=== PATIENT | female | born 1975 | race Caucasian/White ===

== ENCOUNTER → 2018-03-18 | Outpatient (CLI) | payer BC ==
--- NOTE | 2018-03-18 12:28 | XR ---
EXAMINATION TYPE: XR shoulder limited LT DATE OF EXAM: 03/18/2018 CLINICAL HISTORY: pain COMPARISON: NONE TECHNIQUE: Two views of the left shoulder are obtained. FINDINGS: There is no acute fracture/dislocation evident. The acromioclavicular and glenohumeral valente int spaces appear within normal limits. The visualized ribs are intact and unremarkable. IMPRESSION: 1. There is no acute fracture or dislocation. ICD 10 NO FRACTURE, INITIAL EVALUATION
== END | disposition home or self-care (01) ==
LOC: RADXRMAIN 12:03
PROVIDERS: ATTEND Family Medicine
DX: M25.512 Pain in left shoulder (principal)

== ENCOUNTER → 2018-03-25 | Outpatient (CLI) | payer BC ==
--- NOTE | 2018-03-25 12:14 | CT ---
EXAMINATION TYPE: CT brain wo con DATE OF EXAM: 03/25/2018 COMPARISON: None HISTORY: Seiziure disorder CT DLP: 1028.[address] of the brain was performed. The ventricles, basal cisterns and sulci overlying the cerebral convexities demonstrate a normal appe arance. There is no evidence for intracranial hemorrhage or sulcal effacement. No mass effects are seen. Osseous calvarium is intact. If symptoms persist consider MRI as clinically warranted. IMPRESSION: 1. No acute intracranial process is seen at this time.
--- NOTE | 2018-03-25 12:16 | CT ---
EXAMINATION TYPE: CT facial bones wo con DATE OF EXAM: 03/25/2018 COMPARISON: None HISTORY: Contusion of face initial encounter CT DLP: 548.[address] of the facial bones was performed in the axial and coronal planes. Bone and soft tissu e window settings are submitted. None No significant soft tissue swelling is appreciated. I do not see evidence for displaced facial bone fracture or depressed facial bone fracture. The globes are intact. Paranasal sinuses are well-aerated. IMPRESSION: 1. No evidence for depressed or displaced facial bone fracture.
== END ==
LOC: RADCTMAIN 11:27
PROVIDERS: ATTEND Family Medicine
DX: G40.909 Epilepsy, unspecified, not intractable, without status epilepticus (principal); S00.83XA Contusion of other part of head, initial encounter
CPT/HCPCS: 70450; 70486

== ENCOUNTER → 2018-04-09 | Outpatient (CLI) | payer BC ==
--- NOTE | 2018-04-09 23:30 | MR ---
EXAMINATION TYPE: MR cervical spine wo con DATE OF EXAM: 04/09/2018 COMPARISON: 12/15/2010 HISTORY: Neck pain, headaches, weakness in fingers x 10 years TECHNIQUE: Multiplanar, multisequence images of the cervical spine were acquired. The cervical vertebra have normal alignment. There is apparent old anterior fusion at C4-5 or hypopla stic disc. There is degenerative disc space narrowing throughout the cervical spine with decreased si gnal in the disks. The brainstem is intact. Cervical spinal cord has fairly normal signal pattern. Th ere is no edema. There is developmentally adequate spinal canal. There are small posterior disc bulgi ng at C3-4 C5-6 C6-7. C7-T1 also shows disc bulging. There is no evidence of a fracture. Posterior el ements are intact. IMPRESSION: Mild degenerative disc changes as above. There is increased posterior mild disc bulging or herniation at multiple levels compared to old exam. There is developmentally adequate canal and no significant narrowing of the spinal canal. No spinal stenosis. No fracture.
== END | disposition home or self-care (01) ==
LOC: RADMRIMAIN 16:19
PROVIDERS: ATTEND Psychiatry & Neurology Neurology
DX: M48.02 Spinal stenosis, cervical region (principal); M50.21 Other cervical disc displacement, high cervical region; M47.812 Spondylosis without myelopathy or radiculopathy, cervical region
CPT/HCPCS: 72141

== ENCOUNTER → 2018-04-09 | Outpatient (CLI) | payer BC ==
[2018-04-09 17:43] LABS: Basophils # (A) 0.1 k/uL (0-0.2); Basophils % (A) 1 %; Eosinophils # (A) 0.2 k/uL (0-0.7); Eosinophils % (A) 3 %; HCT 42.9 % (34.0-46.0); HGB 13.8 gm/dL (11.4-16.0); Lymphocytes # (A) 3.1 k/uL (1.0-4.8); Lymphocytes % (A) 41 %; MCH 31.7 pg (25.0-35.0); MCHC 32.2 g/dL (31.0-37.0); MCV 98.4 fL (80.0-100.0); Mean Platelet Volume 6.5; Monocytes # (A) 0.5 k/uL (0-1.0); Monocytes % (A) 6 %; Neutrophils # (A) 3.5 k/uL (1.3-7.7); Neutrophils % (A) 47 %; Platelet Count 267 k/uL (150-450); RBC 4.36 m/uL (3.80-5.40); RDW 12.3 % (11.5-15.5); WBC 7.5 k/uL (3.8-10.6)
[2018-04-09 23:27] LABS: Valproic Acid (Depakene) 117.9 ug/mL (50.0-100.0)
== END | disposition home or self-care (01) ==
LOC: LABWHC1 17:01
PROVIDERS: ATTEND Psychiatry & Neurology Neurology
DX: G40.909 Epilepsy, unspecified, not intractable, without status epilepticus (principal)
CPT/HCPCS: 36415; 80164; 84450; 84460; 85025

== ENCOUNTER → 2019-08-12 | Outpatient (CLI) | payer BC ==
--- NOTE | 2019-08-13 07:44 | US ---
EXAMINATION TYPE: US kidneys/renal and bladder DATE OF EXAM: 08/12/2019 COMPARISON: NONE CLINICAL HISTORY: N39.0 urinary tract infection, recurrent. Recurrent UTI EXAM MEASUREMENTS: Right Kidney: 8.9 x 4.4 x 4.0 cm Left Kidney: 9.3 x 4.3 x 5.8 cm Right Kidney: No hydronephrosis or masses seen Left Kidney: No hydronephrosis or masses seen Bladder: distended. Debris visualized in posterior bladder. Right jet seen IMPRESSION: 1. Normal renal ultrasound. 2. Note is made of debris within the urinary bladder.
== END | disposition home or self-care (01) ==
LOC: RADUSWWP 15:32
PROVIDERS: ATTEND Family Medicine
DX: N39.0 Urinary tract infection, site not specified (principal)
CPT/HCPCS: 76770

== ENCOUNTER → 2019-10-08 | Outpatient (CLI) | payer BC | END | disposition home or self-care (01) | LOC: LABWHC1 11:15 | PROVIDERS: ATTEND Emergency Medicine | DX: Z20.828 Contact with and (suspected) exposure to other viral communicable diseases (principal) | CPT/HCPCS: U0003; C9803 ==